=== PATIENT | male | born 1980 | race Hispanic/Latino ===

== ENCOUNTER 2017-07-24 16:12 | Emergency (ER) | payer MEDICARE ==
[2017-07-24 18:08] LABS: Basophils % (Auto) 0.9 % (0.0-1.8); Eosinophils % (Auto) 4.5 % (0.0-4.3); Hemoglobin 15.1 gm/dl (11.8-15.2); Mean Corpuscular HGB Conc 33 % (32-34); Mean Corpuscular Hemoglobin 30 pg (28-32); Mean Corpuscular Volume 90 fl (84-94); Platelet Count 229 K/mm3 (140-440); Red Cell Distribution Width 13.3 % (13.2-15.2); White Blood Count 10.8 K/mm3 (4.5-11.0)
[2017-07-24 18:14] LABS: Alanine Aminotransferase 26 units/L (7-56); Albumin 4.7 g/dL (3.9-5); Alkaline Phosphatase 78 units/L (35-129); Anion Gap 19 mmol/L; BUN/Creatinine Ratio 16; Bilirubin,Total < 0.20 mg/dL (0.1-1.2); Blood Urea Nitrogen 16 mg/dL (9-20); Calcium 9.5 mg/dL (8.4-10.2); Carbon Dioxide 26 mmol/L (22-30); Chloride 100.8 mmol/L (98-107); Glucose 88 mg/dL (75-100); Lipase 47 units/L (13-60); Potassium 4.1 mmol/L (3.6-5.0); Sodium 142 mmol/L (137-145)
[2017-07-24 18:15] LABS: Urine Drugs of Abuse Note Disclamer
[2017-07-24 18:44] LABS: Bilirubin,Urine NEG (Negative); Blood,Urine NEG (Negative); Ketones,Urine NEG (Negative); Leukocyte Esterase,Urine NEG (Negative); Mucus,Urine FEW /HPF; Nitrite,Urine NEG (Negative); Protein,Urine <15 mg/dL mg/dL (Negative); Urobilinogen,Urine < 2.0 mg/dL (<2.0)
[2017-07-25 01:55] VITALS: BP 155/90
[2017-07-25] MEDS ORDERED: TORADOL IV ONE (02:46)
--- NOTE | 2017-07-25 02:52 | Emergency Department Report ---
ED Chest Pain HPI - General Chief Complaint: Chest Pain Stated Complaint: HEART BURN Time Seen by Provider: 07/25/17 02:01 Source: patient Mode of arrival: Wheelchair Limitations: No Limitations - History of Present Illness Initial Comments: 37 YO MALE SCHIZOPHRENIC WITH C/O OF 4 YEARS OF CHESST AND ABDOMINLA PAIN. PT FEEL THE PAIN IS LIKE HEART PAIN BUT POINTS TO HIS LEFT UPPER QUADRANT WHEN ASKED TO C=SHOW WHERE THE CHEST PAINIS. HE C/O LEFT UPPER QUADRANT PAIN FROM AREA LUQ TO LLQ.IT IS NOT ASSOCIATED WITH N/V/FEVER OR CHILLS. PT STATED THAT HE HAS BEEN HAVING ALL THESE SYMPTOMS FOR 4 YEARS AND CONTINUOSLY HAVING A HEART ATTACK FOR 4 YEARS STRAIGHT. MD Complaint: chest pain -: year(s) (4) Onset: other (ALLTHE TIME) Pain Location: left chest Pain Radiation: abdomen Severity: mild Severity scale (0 -10): 10 Quality: other (NOT CHARACTERIZED) Consistency: constant Improves With: nothing Worsens With: nothing Context: other (NOTHING) re: denies: nausea, vomting, diaphoresis, dyspnea, sense of impending doom Treatments Prior to Arrival: none Aspirin use within the Past 7 Days: (0) No - Related Data On Oral Contraceptives: No Home Medications Medication Instructions Recorded Confirmed Last Taken FLUoxetine HCL [FLUoxetine] 2 tab PO DAILY 04/10/16 04/10/16 1 Day Ago ~04/09/16 Olanzapine [OLANZapine] 40 mg PO QHS 04/10/16 04/10/16 1 Day Ago ~04/09/16 Previous Rx's Medication Instructions Recorded Last Taken Type Ibuprofen [Motrin 400 MG tab] 400 mg PO Q8H PRN #20 tablet 07/25/17 Unknown Rx Allergies Allergy/AdvReac Type Severity Reaction Status Date / Time No Known Allergies Allergy Unverified 10/09/15 17:53 Heart Score - HEART Score History: Slightly suspicious EKG: Normal Age: < 45 Risk factors: No known risk factors Troponin: < normal limit HEART Score: 0 ED Review of Systems ROS: Stated complaint: HEART BURN Other details as noted in HPI Constitutional: denies: chills, fever Eyes: denies: eye pain, eye discharge, vision change ENT: denies: ear pain, throat pain Respiratory: denies: cough, shortness of breath, wheezing Cardiovascular: denies: palpitations Endocrine: no symptoms reported Gastrointestinal: abdominal pain. denies: nausea, vomiting, diarrhea Genitourinary: denies: urgency, dysuria Musculoskeletal: denies: back pain, joint swelling, arthralgia Skin: denies: rash, lesions Neurological: denies: headache, weakness, paresthesias Psychiatric: denies: anxiety, depression Hematological/Lymphatic: denies: easy bleeding, easy bruising ED Past Medical Hx - Past Medical History Hx Psychiatric Treatment: Yes (schizophrenia,anxiety) Additional medical history: head injury 2012,chronic neck pain from trauma - Social History Smoking Status: Current Every Day Smoker Substance Use Type: None - Medications Home Medications: Home Medications Medication Instructions Recorded Confirmed Last Taken Type FLUoxetine HCL [FLUoxetine] 2 tab PO DAILY 04/10/16 04/10/16 1 Day Ago History ~04/09/16 Olanzapine [OLANZapine] 40 mg PO QHS 04/10/16 04/10/16 1 Day Ago History ~04/09/16 Ibuprofen [Motrin 400 MG tab] 400 mg PO Q8H PRN #20 tablet 07/25/17 Unknown Rx ED Physical Exam - General Limitations: No Limitations ED Course Vital Signs 07/24/17 07/25/17 07/25/17 17:12 00:02 01:53 Temperature 98.5 F 97.9 F 98 F Pulse Rate 85 81 111 H Respiratory 18 18 Rate Blood Pressure 120/85 129/80 Blood Pressure 155/90 [Left] O2 Sat by Pulse 98 95 Oximetry VINAYAK score - Vinayak Score Age > 65: (0) No Aspirin use within the Past 7 Days: (0) No 3 or more CAD Risk Factors: (0) No 2 or more Angina events in past 24 hrs: (0) No Known CAD with more than 50% Stenosis: (0) No Elevated Cardiac Markers: (0) No ST Deviation Greater than 0.5mm: (0) No VINAYAK Score: 0 ED Medical Decision Making - Lab Data Result diagrams: 07/24/17 17:29 07/24/17 17:29 Critical care attestation.: If time is entered above; I have spent that time in minutes in the direct care of this critically ill patient, excluding procedure time. ED Disposition Clinical Impression: Abdominal pain Qualifiers: Abdominal location: left upper quadrant Qualified Code(s): R10.12 - Left upper quadrant pain Disposition: DC-01 TO HOME OR SELFCARE Is pt being admited?: No Does the pt Need Aspirin: No Condition: Stable Instructions: Chest Pain (ED), Abdominal Pain (ED), Schizophrenia (ED) Additional Instructions: FOLLOW UP WITH YOUR DOCTOR FOR FURTHER EVALUATION OF YOUR DISCOMFORT, ALL YOUR RESULTS ARE NEGATIVE. RETURN TO THE EMERGENCY DEPARTMENT FOR ANY CONCERNS Prescriptions: Ibuprofen [Motrin 400 MG tab] 400 mg PO Q8H PRN #20 tablet PRN Reason: Pain Referrals: PRIMARY CARE, [Primary Care Provider] - 3-5 Days Time of Disposition: 04:24
--- NOTE | 2017-07-25 03:14 | XRay Report ---
FINAL REPORT EXAM: XR ABD SERIES W CXR 1V HISTORY: CHEST AND ABDOMINAL PAIN TECHNIQUE: A PA view of the chest was obtained along with three views of the abdomen. FINDINGS: The chest reveals normal heart size and mediastinum. The lungs are clear. The bones and soft tissues appear normal. The abdominal bowel gas pattern is normal. Free air is not seen. There is no evidence of mass effect or suspicious calcifications. The skeletal structures appear well maintained. IMPRESSION: No acute process identified.
== END 2017-07-25 05:22 | disposition home or self-care (01) ==
LOC: ED 16:12
DX: R10.12 Left upper quadrant pain (principal); F20.9 Schizophrenia, unspecified; F41.9 Anxiety disorder, unspecified; F17.200 Nicotine dependence, unspecified, uncomplicated
CPT/HCPCS: 36415; 74022; 80053; 80307; 81001; 83690; 84484; 85025; 85379; 93005; 93010; 99285; J1885

== ENCOUNTER 2017-09-08 10:05 | Emergency (ER) | payer MEDICARE ==
--- NOTE | 2017-09-08 14:50 | Emergency Department Report ---
HPI - General Chief Complaint: Back Pain/Injury Time Seen by Provider: 09/08/17 14:29 - HPI HPI: This is a 37-year-old male with no prior medical condition who presents to ED complaining of lower back pain 4 days. Patient states he was sleeping and woke up when he felt the pain patient states that he is spine hurts. Patient states that he had no injuries or trauma or fall to the back. Patient just states pain is throbbing and sharp in nature. He denies fevers/chills/nausea/ vomiting/abdominal pain chest pain or shortness of breath ED Past Medical Hx - Past Medical History Hx Psychiatric Treatment: Yes (schizophrenia,anxiety) Additional medical history: head injury 2012,chronic neck pain from trauma - Social History Smoking Status: Current Every Day Smoker Substance Use Type: None - Medications Home Medications: Home Medications Medication Instructions Recorded Confirmed Last Taken Type FLUoxetine HCL [FLUoxetine] 2 tab PO DAILY 04/10/16 04/10/16 1 Day Ago History ~04/09/16 Olanzapine [OLANZapine] 40 mg PO QHS 04/10/16 04/10/16 1 Day Ago History ~04/09/16 Ibuprofen [Motrin 400 MG tab] 400 mg PO Q8H PRN #20 tablet 07/25/[address] [Voltaren Dr] 75 mg PO BID #30 tablet 09/08/17 Unknown Rx traMADol [Ultram] 50 mg PO Q6HR PRN #12 tablet 09/08/17 Unknown Rx ED Review of Systems ROS: Stated complaint: BACK PAIN Other details as noted in HPI Constitutional: denies: chills, fever Eyes: denies: eye pain, eye discharge, vision change ENT: denies: ear pain, throat pain Respiratory: denies: cough, shortness of breath, wheezing Cardiovascular: denies: chest pain, palpitations Endocrine: no symptoms reported Gastrointestinal: denies: abdominal pain, nausea, vomiting, diarrhea Genitourinary: denies: urgency, dysuria Musculoskeletal: arthralgia. denies: back pain, joint swelling, myalgia Skin: denies: rash, lesions Neurological: denies: headache, weakness, paresthesias Psychiatric: denies: anxiety, depression Hematological/Lymphatic: denies: easy bleeding, easy bruising Physical Exam - Physical Exam Vital Signs: Vital Signs 09/08/17 11:02 Temperature 98.3 F Pulse Rate 84 Respiratory 20 Rate Blood Pressure 107/65 O2 Sat by Pulse 97 Oximetry Physical Exam: GENERAL: Alert and oriented x3, no apparent distress, Normal Gait, atraumatic. HEAD: Head is normocephalic and a-traumatic. NECK: Supple. Non edematous, No lymphadenopathy or thyromegaly. No C-spine tenderness, LUNGS: Symetrical with respiration, No wheezing, no rales or crackles, CTAB. HEART: S1, S2 present, regular rate and rhythm without murmur, no rubs, no gallops. Non tender to palpation BACK: Full range of motion, mild tenderness to palpation of the spine, EXTREMITIES/MUSCULOSKELETAL: No cyanosis, clubbing, rash, lesions or edema. Full ROM bilaterally. UE/LE Pulses 2+ bilaterally. LE and UE 5+ strength bilaterally, NEUROLOGIC: The patient is cooperative with no focal neurologic deficits. Normal speech. Normal sensation in bilateral upper and lower extremities, No loss of sensation, SKIN: Warm and dry, No lesions, No ulceration or induration present. ED Course Vital Signs 09/08/17 11:02 Temperature 98.3 F Pulse Rate 84 Respiratory 20 Rate Blood Pressure 107/65 O2 Sat by Pulse 97 Oximetry ED Medical Decision Making - Radiology Data CT SCAN OF THE lumbar SPINE: HISTORY: Back pain. TECHNIQUE: Contiguous 1.25 mm axial images of the lumbar spine were obtained. Sagittal and coronal reformatted images. FINDINGS: There is normal alignment of the lumbar spine. The body, pedicles and posterior ligaments appear normal. No evidence of fracture or subluxation is seen. The spinal canal appears normal. Mild to moderate degenerative disc disease is identified at L4-5 and L5-S1. The remaining levels are within normal limits. The prevertebral soft tissues appear normal. IMPRESSION: Mild lumbar spondylosis most pronounced at the lowest 2 levels. No evidence for acute injury. Transcribed By: TTR Dictated By: NICOLLE KAUR JR, MD Electronically Authenticated By: NICOLLE KAUR JR, MD Signed Date/Time: 09/08/17 1524 - Medical Decision Making 37-year-old male presents with degenerative disc disease of the lumbar spine ED course: CT scan of the lumbar spine ordered. CT scan shows reported as above I discussed findings with the patient. Patient received Toradol 60 mg of prednisone ED. I discussed the patient to follow up with primary care physician. I discussed the patient to observe from heavy lifting and she has activities for a couple days. I suggested heat therapy 3 times a day. I discussed with patient if symptoms get worse to return to ED otherwise follow- up with the primary care doctor Vital signs are normal patient is in no acute or respiratory distress. Critical care attestation.: If time is entered above; I have spent that time in minutes in the direct care of this critically ill patient, excluding procedure time. ED Disposition Clinical Impression: DJD (degenerative joint disease), lumbar, Lumbar back pain Disposition: - TO HOME OR SELFCARE Is pt being admited?: No Does the pt Need Aspirin: No Condition: Stable Instructions: Lumbar Radiculopathy (ED), Chronic Back Pain (ED), Degenerative Disc Disease (ED) Additional Instructions: Make sure to follow up with the primary care physician as discussed. Take all your medications as you've been prescribed. If you have any worsening symptoms or develop new symptoms please return to ED immediately. Prescriptions: Diclofenac Dr [Drake Acuña] 75 mg PO BID #30 tablet traMADol [Ultram] 50 mg PO Q6HR PRN #12 tablet PRN Reason: Pain Referrals: PRIMARY CARE, [Primary Care Provider] - 3-5 Days [facility] [Outside] - 3-5 Days [facility] [Outside] - 3-5 Days [facility] [Outside] - 3-5 Days Forms: Work/School Release Form Time of Disposition: 15:46
[2017-09-08] MEDS ORDERED: DELTASONE PO ONE (15:03)
[2017-09-08] MEDS ORDERED: TORADOL IM ONE (15:03)
--- NOTE | 2017-09-08 15:30 | Cat Scan Report ---
CT SCAN OF THE lumbar SPINE: HISTORY: Back pain. TECHNIQUE: Contiguous 1.25 mm axial images of the lumbar spine were obtained. Sagittal and coronal reformatted images. FINDINGS: There is normal alignment of the lumbar spine. The body, pedicles and posterior ligaments appear normal. No evidence of fracture or subluxation is seen. The spinal canal appears normal. Mild to moderate degenerative disc disease is identified at L4-5 and L5-S1. The remaining levels are within normal limits. The prevertebral soft tissues appear normal. IMPRESSION: Mild lumbar spondylosis most pronounced at the lowest 2 levels. No evidence for acute injury.
[2017-09-08 16:04] VITALS: BP 128/72
== END 2017-09-08 16:02 | disposition home or self-care (01) ==
LOC: ED 10:05
DX: M19.90 Unspecified osteoarthritis, unspecified site (principal); M54.5 Low back pain; F17.200 Nicotine dependence, unspecified, uncomplicated
CPT/HCPCS: 72131; 96372; 99284; J1885; J7512

== ENCOUNTER 2017-09-08 10:42 | Emergency (ER) | payer MEDICARE | END 2017-09-08 17:01 | disposition other institution (70) | LOC: ED 10:42 | DX: Z53.21 Procedure and treatment not carried out due to patient leaving prior to being seen by health care provider (principal) ==

== ENCOUNTER 2017-09-19 13:15 | Emergency (ER) | payer MEDICARE ==
--- NOTE | 2017-09-19 19:46 | Emergency Department Report ---
ED Male HPI - General Chief complaint: Back Pain/Injury Stated complaint: TESTICLE PAIN Time Seen by Provider: 09/19/17 19:26 Source: patient Mode of arrival: Ambulatory Limitations: No Limitations - History of Present Illness Initial comments: 37-year-old male past medical history schizophrenia on Depakote Haldol Vistaril Klonopin and trazodone that he has been experiencing acute on chronic lower back pain and some testicular pain. Patient denies any bladder or bowel incontinence. Is ambulatory without assistance. Denies any trauma denies any falls. Patient is awake alert and oriented 3 and fully lucid. Patient speaks in a very slow home and has somewhat flat affect. Patient states this is due to the medicines he takes for his schizophrenia. Patient states that he has no abdominal pain nausea vomiting fever or chills. Patient states he has not been sexually active in some time. States he has had testicular pain for approximately 2 weeks and it is bilateral. States pain is 2 out of 10 and intermittent. Denies any dysuria or increased urinary frequency or penile discharge. MD Complaint: testicle pain, dysuria, groin pain Location: right testicle, left testicle Radiation: none Severity: mild Severity scale (0 -10): 2 Quality: aching Consistency: intermittent Improves with: none Worsens with: none new medication denies other symptoms - Related Data Home Medications Medication Instructions Recorded Confirmed Last Taken FLUoxetine HCL [FLUoxetine] 2 tab PO DAILY 04/10/16 04/10/16 1 Day Ago ~04/09/16 Olanzapine [OLANZapine] 40 mg PO QHS 04/10/16 04/10/16 1 Day Ago ~04/09/16 Previous Rx's Medication Instructions Recorded Last Taken Type Ibuprofen [Motrin 400 MG tab] 400 mg PO Q8H PRN #20 tablet 07/25/[address] [Voltaren Dr] 75 mg PO BID #30 tablet 09/08/17 Unknown Rx traMADol [Ultram] 50 mg PO Q6HR PRN #12 tablet 09/08/17 Unknown Rx Naproxen 500 mg PO BID PRN #20 tablet 09/19/17 Unknown Rx Allergies Allergy/AdvReac Type Severity Reaction Status Date / Time No Known Allergies Allergy Unverified 10/09/15 17:53 ED Review of Systems ROS: Stated complaint: TESTICLE PAIN Other details as noted in HPI Constitutional: denies: chills, fever Eyes: denies: eye pain, eye discharge, vision change ENT: denies: ear pain, throat pain Respiratory: denies: cough, shortness of breath, wheezing Cardiovascular: denies: chest pain, palpitations Endocrine: no symptoms reported Gastrointestinal: as per HPI. denies: abdominal pain, nausea, diarrhea Genitourinary: as per HPI. denies: urgency, dysuria Musculoskeletal: back pain. denies: joint swelling, arthralgia Skin: denies: rash, lesions Neurological: denies: headache, weakness, paresthesias Psychiatric: denies: anxiety, depression Hematological/Lymphatic: denies: easy bleeding, easy bruising ED Past Medical Hx - Past Medical History Hx Psychiatric Treatment: Yes (schizophrenia,anxiety) Additional medical history: head injury 2012,chronic neck pain from trauma - Surgical History Past Surgical History?: No - Social History Smoking Status: Current Every Day Smoker Substance Use Type: Alcohol - Medications Home Medications: Home Medications Medication Instructions Recorded Confirmed Last Taken Type FLUoxetine HCL [FLUoxetine] 2 tab PO DAILY 04/10/16 04/10/16 1 Day Ago History ~04/09/16 Olanzapine [OLANZapine] 40 mg PO QHS 04/10/16 04/10/16 1 Day Ago History ~04/09/16 Ibuprofen [Motrin 400 MG tab] 400 mg PO Q8H PRN #20 tablet 07/25/[address] [Voltaren Dr] 75 mg PO BID #30 tablet 09/08/17 Unknown Rx traMADol [Ultram] 50 mg PO Q6HR PRN #12 tablet 09/08/17 Unknown Rx Naproxen 500 mg PO BID PRN #20 tablet 09/19/17 Unknown Rx ED Physical Exam - General Limitations: No Limitations General appearance: alert, in no apparent distress - Head Head exam: Present: atraumatic, normocephalic - Eye Eye exam: Present: normal appearance, PERRL, EOMI - ENT ENT exam: Present: mucous membranes moist - Neck Neck exam: Present: normal inspection - Respiratory Respiratory exam: Present: normal lung sounds bilaterally. Absent: respiratory distress - Cardiovascular Cardiovascular Exam: Present: regular rate, normal rhythm. Absent: systolic murmur, diastolic murmur, rubs, gallop - GI/Abdominal GI/Abdominal exam: Present: soft, normal bowel sounds - Rectal Rectal exam: Present: deferred - exam: Present: normal inspection - Extremities Exam Extremities exam: Present: normal inspection - Back Exam Back exam: Present: normal inspection - Neurological Exam Neurological exam: Present: alert, oriented X3, CN II-XII intact, normal gait - Psychiatric Psychiatric exam: Present: normal affect, normal mood - Skin Skin exam: Present: warm, dry, intact, normal color. Absent: rash ED Course Vital Signs 09/19/17 09/19/17 09/19/17 15:50 21:04 21:55 Temperature 98.6 F 97.9 F Pulse Rate 100 H 70 Respiratory Rate Blood Pressure 110/80 Blood Pressure 106/58 [Right] O2 Sat by Pulse 97 95 Oximetry ED Medical Decision Making - Lab Data Result diagrams: 09/19/17 19:43 09/19/17 19:43 - Medical Decision Making A/P: Degenerative lower back disease, epididymitis 1-labs unremarkable. Ultrasound shows some possible epididymal head swelling. No clinical signs of Angie's gangrene or groin abscess on clinical examination of the testicles and perineal region 2-no clinical signs of cauda equina patient is ambulatory strength 5 out of 5 both lower extremities good rectal tone on exam. 3-treatment of epididymitis with ceftriaxone and azithromycin 4- naproxen when necessary for lower back pain. 5- I advised patient to follow up with primary care and orthopedics. Critical care attestation.: If time is entered above; I have spent that time in minutes in the direct care of this critically ill patient, excluding procedure time. ED Disposition Clinical Impression: Epididymitis Chronic back pain Qualifiers: Back pain location: low back pain Back pain laterality: midline Sciatica presence: without sciatica Qualified Code(s): M54.5 - Low back pain; G89.29 - Other chronic pain; G89.29 - Other chronic pain Disposition: - TO HOME OR SELFCARE Is pt being admited?: No Does the pt Need Aspirin: No Condition: Stable Instructions: Epididymitis (ED), Back Pain (ED), Chronic Back Pain (ED) Prescriptions: Naproxen 500 mg PO BID PRN #20 tablet PRN Reason: Pain Referrals: YAZAN MENA MD [Primary Care Provider] - 3-5 Days [facility] [Outside] - 3-5 Days [facility] [Outside] - 3-5 Days [facility] [Provider Group] - 3-5 Days Forms: STI Treatment and Prevention Time of Disposition: 22:51
[2017-09-19] MEDS ORDERED: MOTRIN PO ONE (19:47)
[2017-09-19 19:55] LABS: Basophils # (Auto) 0.1 K/mm3 (0.0-0.1); Basophils % (Auto) 0.7 % (0.0-1.8); Eosinophils # (Auto) 0.2 K/mm3 (0.0-0.4); Eosinophils % (Auto) 1.6 % (0.0-4.3); Hematocrit 41.8 % (35.5-45.6); Hemoglobin 13.9 gm/dl (11.8-15.2); Lymphocytes # (Auto) 2.7 K/mm3 (1.2-5.4); Lymphocytes % (Auto) 22.2 % (13.4-35.0); Mean Corpuscular HGB Conc 33 % (32-34); Mean Corpuscular Hemoglobin 29 pg (28-32); Mean Corpuscular Volume 88 fl (84-94); Monocytes % (Auto) 8.1 % (0.0-7.3); Platelet Count 254 K/mm3 (140-440); Red Blood Count 4.77 M/mm3 (3.65-5.03)
[2017-09-19 20:13] LABS: BUN/Creatinine Ratio 22; Blood Urea Nitrogen 24 mg/dL (9-20); Calcium 9.3 mg/dL (8.4-10.2); Hemolysis Index 11
[2017-09-19 21:04] LABS: Bacteria,Urine 4+ /HPF (Negative); Bilirubin,Urine NEG (Negative); Blood,Urine NEG (Negative); Color,Urine Yellow (Yellow); Mucus,Urine 1+ /HPF; Nitrite,Urine NEG (Negative); Protein,Urine <15 mg/dL mg/dL (Negative); Sperm,Urine 1+ /HPF (NP); Urobilinogen,Urine < 2.0 mg/dL (<2.0)
[2017-09-19 21:11] LABS: Amphetamine Screen,Urine PRESUMPTIVE NEGATIVE; Cannabinoid Screen,Urine PRESUMPTIVE NEGATIVE; Cocaine Screen,Urine PRESUMPTIVE NEGATIVE; Methadone Screen,Urine PRESUMPTIVE NEGATIVE; Opiate Screen,Urine PRESUMPTIVE NEGATIVE
--- NOTE | 2017-09-19 21:31 | XRay Report ---
FINAL REPORT PROCEDURE: Lumbar spine. TECHNIQUE: Three views. HISTORY: Worsening lower back pain. COMPARISON: No prior studies are available for comparison. FINDINGS: The lumbar vertebrae have normal height and alignment. There are no fractures. There is no spondylolisthesis. There is moderate disc space narrowing at L4-5 and L5-S1. The sacrum and sacroiliac joints appear normal. IMPRESSION: Degenerative disc disease at L4-5 and L5-S1.
[2017-09-19 21:41] LABS: Benzodiazepines Screen,Urine PRESUMPTIVE POSITIVE
[2017-09-19 21:56] VITALS: BP 106/58
--- NOTE | 2017-09-19 21:57 | Ultrasound Report ---
FINAL REPORT PROCEDURE: Scrotal ultrasound. TECHNIQUE: Real-time cai-scale and color flow Doppler sonography in multiple planes of the scrotum, testicles, and epididymes was performed. Velocity spectral waveform analysis Doppler imaging of the arterial inflow and venous outflow of the testicles was performed with image documentation. [place] [address] [place] [address] HISTORY: Bilateral testicle pain, question epididymitis. COMPARISON: No prior studies are available for comparison. FINDINGS: Both testes have uniform echogenicity. There are no focal testicular masses. There is normal testicular blood flow demonstrated by color flow imaging as well as Doppler spectral analysis. There are small hypoechoic masses in both epididymal heads. The right measures 6 millimeters x 4 millimeters x 6 millimeters. The left measures 8 millimeters x 4 millimeters x 15 millimeters. These may represent complex cysts. They are of doubtful clinical significance. There are no hydroceles. There are no varicoceles. There is no increased vascularity to suggest epididymitis. IMPRESSION: Small hypoechoic masses in both epididymal heads as discussed above.
[2017-09-19] MEDS ORDERED: ZITHROMAX PO ONE (22:50)
[2017-09-19] MEDS ORDERED: XYLOCAINE 1% MPF 5 mL INFILTRATI ONE (22:50)
[2017-09-19] MEDS ORDERED: ROCEPHIN IM ONE (22:50)
== END 2017-09-19 23:45 | disposition home or self-care (01) ==
LOC: ED 13:15
DX: N45.1 Epididymitis (principal); F17.200 Nicotine dependence, unspecified, uncomplicated
CPT/HCPCS: 36415; 72100; 80048; 80307; 81001; 85025; 87086; 93975; 96372; 99284; J0696